=== PATIENT | male | born 1945 ===

== ENCOUNTER 2016-10-30 06:05 | Inpatient (IN) | payer MEDICARE ==
[~2016-10-30] VITALS: Ht 188 cm; Wt 120.9 kg
[2016-10-30] VITALS (11 sets, daily range): BP systolic 161–194; BP diastolic 70–83; PULSE 58–69; RESP 18–36; TEMP 98.8–100.1; O2SAT 96–100
[2016-10-30] MEDS ORDERED: VANCOMYCIN INJ 1,000 MG in SODIUM CHLOR 0.9% 250 ML INJ 250 ML IV STA (06:20)
[2016-10-30] MEDS ORDERED: CEFEPIME INJ 2,000 MG in SODIUM CHLORIDE 0.9% INJ 100 ML IV STA (06:20)
[2016-10-30] MEDS ORDERED: RESP: ALBUTEROL 2.5 MG/IPRATROPIUM 0.5 MG NEB (SCH) NEB ONE (06:30)
[2016-10-30 06:44] LABS: BLOOD GAS BASE EXCESS -5.2 mmol/L (-2-2); BLOOD GAS CARBOXYHEMOGLOBIN 2.5 % (0-4); BLOOD GAS HCO3 18 mmol/L (22-26); BLOOD GAS METHEMOGLOBIN 1.3 % (0-2); BLOOD GAS O2 HGB SATURATION 96 % (90-100); BLOOD GAS OXYGEN CONTENT 14.8 Vol % (12.0-20.0); BLOOD GAS PCO2 28 mmHg (38-42); BLOOD GAS PO2 119 mmHG (61-120); BLOOD GAS TOTAL HGB 10.8 G/DL (12.0-16.0); CRITICAL VALUE NO; DRAW SITE LT RADIAL; FIO2 35 %; NUMBER OF ARTERIAL PUNCTURES 1; OXYGEN DEVICE NPPV; STAT YES; TEMP CORR TO 98.6; ULNAR PULSE PRESENT; VENT SETTINGS IPAP10/EPAP5
[2016-10-30 06:45] LABS: AUTOMATED NEUTROPHIL # 13.8 TH/MM3 (1.8-7.7); BASOPHIL % 0.2 % (0.0-2.0); EOSINOPHIL % 0.1 % (0.0-4.0); HEMATOCRIT 34.7 % (39.0-51.0); LYMPH % 2.1 % (9.0-44.0); LYMPHOCYTE # 0.3 TH/MM3 (1.0-4.8); MEAN CELL VOLUME 88.4 FL (80.0-100.0); MEAN CORPUSCULAR HEMOGLOBIN 28.5 PG (27.0-34.0); MEAN CORPUSCULAR HGB CONC 32.3 % (32.0-36.0); MONO % 9.7 % (0.0-8.0); NEUT % 87.9 % (16.0-70.0); PLATELET COUNT 230 TH/MM3 (150-450); RED BLOOD COUNT 3.93 MIL/MM3 (4.50-5.90); RED CELL DISTRIBUTION WIDTH 15.1 % (11.6-17.2); WHITE BLOOD COUNT 15.7 TH/MM3 (4.0-11.0)
[2016-10-30] MEDS ORDERED: ASPIRIN 81 MG CHEW TAB CHEW ONE (06:45)
[2016-10-30] MEDS ORDERED: NITROGLYCERIN 0.4 MG SL 25 TABS/BTL SL PRN (06:45)
[2016-10-30] MEDS ORDERED: NITROGLYCERIN 2% OINT 1 GM PACKET TOPICAL ONE (06:45)
--- NOTE | 2016-10-30 06:45 | RADRPT ---
EXAM DATE/TIME: 10/30/2016 06:32 [facility] COMPARISON: No previous studies available for comparison. INDICATIONS : Shortness of breath. MEDICAL HISTORY : None. SURGICAL HISTORY : None. ENCOUNTER: Initial ACUITY: 1 day PAIN SCORE: 0/10 LOCATION: Bilateral chest FINDINGS: A single view of the chest demonstrates the lungs to be symmetrically aerated without evidence of mas s, infiltrate or effusion. Heart size is prominent but well compensated. Osseous structures are inta ct. CONCLUSION: 1. Compensated cardiomegaly. 2. Lungs are clear Luigi Estrella MD on October 30, 2016 at 6:43 Board Certified Radiologist. This report was verified electronically.
[2016-10-30 06:51] LABS: APTT (PATIENT) 32.8 SEC (24.3-30.1); INTERNATIONAL NORMALIZED RATIO 1.1 RATIO; PROTHROMBIN TIME - PATIENT 12.3 SEC (9.8-11.6)
[2016-10-30 06:52] LABS: HEMO FLAGS AUTO DIFF
[2016-10-30 06:56] LABS: ANION GAP 10 MEQ/L (5-15); AST (GOT) 37 U/L (15-37); BICARBONATE 19.7 MEQ/L (21.0-32.0); BLOOD UREA NITROGEN 53 MG/DL (7-18); CHLORIDE 107 MEQ/L (98-107); GLOMERULAR FILTRATION RATE 27 ML/MIN (>89); MAGNESIUM 2.1 MG/DL (1.5-2.5); POTASSIUM 5.6 MEQ/L (3.5-5.1); SODIUM (NA) 137 MEQ/L (136-145)
[2016-10-30 07:01] LABS: ALKALINE PHOSPHATASE 233 U/L (45-117); ALT (GPT) 31 U/L (12-78); CREATINE KINASE 110 U/L (39-308); TOTAL BILIRUBIN ADULT 1.2 MG/DL (0.2-1.0)
--- NOTE | 2016-10-30 07:03 | PD ---
HPI Chief Complaint: Respiratory Symptoms Time Seen by Provider: 06:19 Travel History International Travel<30 days: No Contact w/Intl Traveler<30days: No Traveled to known affect area: No History of Present Illness HPI The patient is a 71 year old male who presents to the [facility] emergency department with a history of left lower anterior chest pain and shortness of breath that began approximately one hour prior to arrival. The patient on arrival to this facility has a temperature of 100.1. Unfortunately, the patient is dyspneic and is difficult to obtain a history from. The patient's history is obtained from reviewing the [facility]. According to the [facility] record the patient recently had a crush injury to the left leg and has a splint in place with an open wound to the left medial ankle. Initially, the patient was brought in with reports of abdominal pain, however the patient denies having abdominal pain on my initial evaluation. The patient has a productive sounding cough on examination. He is unsure how long the cough is been going on. The patient has an AV graft in the right upper extremity, however from reviewing the [facility] record I do not see any evidence of him being on dialysis currently. The patient reports that he is unsure whether he is on dialysis. According to their records, the patient has had a renal transplant. Unfortunately, the patient has never been to this facility previously. [facility] Past Medical History Narrative Medical The patient's past medical history is significant for a history of renal failure on hemodialysis in the past, status post kidney transplant, history of atrial fibrillation, chronically anticoagulated from reviewing the record on Eliquis, history of COPD, congestive heart failure, diabetes mellitus, hypertension, anemia, recurrent urinary tract infections, hypocalcemia, history of DVT, hyperlipidemia. From reviewing the [facility] record the patient recently had right upper extremity swelling evaluated with an ultrasound that was negative for DVT. The patient has a history of multiple areas of davila of the upper extremities with skin graft placed previously. Anemia: Yes Atrial Fibrillation: Yes Cardiovascular Problems: Yes Congestive Heart Failure: Yes COPD: Yes Diabetes: Yes Patient Takes Glucophage: No Genitourinary: Yes (UTI) Hypertension: Yes Medical other: Yes (HYPOCALCEMIA, DVT) Integumentary: Yes Renal Failure: Yes (KIDNEY TRANSPLANT) Triglycerides - High: Yes Past Surgical History Narrative Surgical The patient's past surgical history is significant for a right upper extremity AV fistula placement, left leg surgery, skin grafts for davila, history of renal transplant. Other Surgery: Yes (R UA FISTUAL, BURN GRAFTS) Social History Alcohol Use: No Tobacco Use: No Substance Use: No Allergies-Medications (Allergen,Severity, Reaction): Coded Allergies: No Known Allergies (Unverified , 10/30/16) Review of Systems Except as stated in HPI: all other systems reviewed are Neg General / Constitutional: Positive: Fever Eyes: No: Visual changes HENT: No: Headaches Cardiovascular: Positive: Chest Pain or Discomfort Respiratory: Positive: Cough, Shortness of Breath Gastrointestinal: No: Abdominal Pain Genitourinary: No: Dysuria Musculoskeletal: No: Pain Skin: No Rash Neurologic: No: Weakness, Focal Abnormalities, Slurred Speech, Sensory Disturbance Psychiatric: No: Depression Endocrine: No: Polydipsia Hematologic/Lymphatic: No: Easy Bruising Physical Exam Narrative General: The patient is a well-developed well-nourished male, short of breath on arrival with increased work of breathing, tachypnea noted. The patient was brought in by ambulance services, however the patient's blood sugar was not done prior to arrival. The patient's blood sugar on arrival was noted to be in the 168. Head and Neck exam: Head is normocephalic atraumatic. Eyes: EOMI, pupils are equal round and reactive to light. Nose: Midline septum with pink mucous membranes Mouth: Dentition unremarkable. Moist mucus membranes. Posterior oropharynx is not erythematous. No tonsillar hypertrophy. Uvula midline. Airway patent. Neck: No palpable lymphadenopathy. No nuchal rigidity. No thyromegaly. Cardiovascular: Irregularly irregular with rate control in the 60s without murmurs, gallops, or rubs. This is consistent with his history of atrial fibrillation Lungs: Tachypnea as noted on examination with scattered rhonchi throughout. The patient's rhonchi partially improve with coughing. Patient has a productive sounding cough on examination. Abdomen: Soft, without tenderness to palpation in all 4 quadrants of the abdomen. No guarding, rebound, or rigidity. No tenderness on palpation of McBurney's point. Bowel sounds are audible. Negative [place] sign. Extremities: No clubbing or cyanosis. The patient has 1+ pitting edema of the left lower extremity, trace edema of the right lower extremity. The patient has a bandage in place over the right lower extremity below the knee. The patient has a splint in place over the left lower extremity with an open wound at the left medial ankle. This will be cultured. There is a report the record of a previous crush injury to the left leg. Back: No spinous process tenderness to palpation. No costovertebral angle tenderness to palpation. Neurologic Exam: Grossly nonfocal. Data Data Last Documented VS Vital Signs Date Time Temp Pulse Resp B/P Pulse Ox O2 Delivery O2 Flow Rate FiO2 10/30/16 06:32 98 BiPAP 10/30/16 06:32 36 10/30/16 06:15 35 10/30/16 06:07 100.1 69 194/83 Orders Electrocardiogram (10/30/16 06:20) Complete Blood Count With Diff (10/30/16 06:20) Comprehensive Metabolic Panel (10/30/16 06:20) Prothrombin Time / Inr (Pt) (10/30/16 06:20) Act Partial Throm Time (Ptt) (10/30/16 06:20) Lactic Acid Sepsis Protocol (10/30/16 06:20) Magnesium (Mg) (10/30/16 06:20) Lipase (10/30/16 06:20) Ckmb (Isoenzyme) Profile (10/30/16 06:20) Troponin I (10/30/16 06:20) Urinalysis - C+S If Indicated (10/30/16 06:20) Influenzae A/B Antigen (10/30/16 06:20) Blood Culture (10/30/16 06:20) Wound Culture And Gram Stain (10/30/16 06:20) Chest, Single Ap (10/30/16 06:20) Arterial Blood Gas (Abg) (10/30/16 06:20) Blood Glucose (10/30/16 06:20) Ecg Monitoring (10/30/16 06:20) Iv Access Insert/Monitor (10/30/16 06:20) Oximetry (10/30/16 06:20) Oxygen Administration (10/30/16 06:20) Vancomycin Inj (Vancomycin Inj) (10/30/16 06:20) Cefepime Inj (Maxipime Inj) (10/30/16 06:20) B-Type Natriuretic Peptide (10/30/16 06:29) Resp Bipap / Cpap Non Invas Vt (10/30/16 ) Albuterol-Ipratropium Neb (Duoneb Neb) (10/30/16 06:30) Aspirin Chew (Aspirin Chew) (10/30/16 06:45) Nitroglycerin Sl (Nitrostat Sl) (10/30/16 06:45) Nitroglycerin 2% Oint (Nitroglycerin 2% (10/30/16 06:45) CKMB (10/30/16 06:25) CKMB% (10/30/16 06:25) Labs Laboratory Tests Test 10/30/16 10/30/16 06:25 06:34 White Blood Count 15.7 TH/MM3 Red Blood Count 3.93 MIL/MM3 Hemoglobin 11.2 GM/DL Hematocrit 34.7 % Mean Corpuscular Volume 88.4 FL Mean Corpuscular Hemoglobin 28.5 PG Mean Corpuscular Hemoglobin 32.3 % Concent Red Cell Distribution Width 15.1 % Platelet Count 230 TH/MM3 Mean Platelet Volume 8.7 FL Neutrophils (%) (Auto) 87.9 % Lymphocytes (%) (Auto) 2.1 % Monocytes (%) (Auto) 9.7 % Eosinophils (%) (Auto) 0.1 % Basophils (%) (Auto) 0.2 % Neutrophils # (Auto) 13.8 TH/MM3 Lymphocytes # (Auto) 0.3 TH/MM3 Monocytes # (Auto) 1.5 TH/MM3 Eosinophils # (Auto) 0.0 TH/MM3 Basophils # (Auto) 0.0 TH/MM3 CBC Comment AUTO DIFF Differential Comment Prothrombin Time 12.3 SEC Prothromb Time International 1.1 RATIO Ratio Activated Partial 32.8 SEC Thromboplast Time Sodium Level 137 MEQ/L Potassium Level 5.6 MEQ/L Chloride Level 107 MEQ/L Carbon Dioxide Level 19.7 MEQ/L Anion Gap 10 MEQ/L Blood Urea Nitrogen 53 MG/DL Creatinine 2.35 MG/DL Estimat Glomerular Filtration 27 ML/MIN Rate Random Glucose 165 MG/DL Lactic Acid Level 1.0 mmol/L Calcium Level 8.4 MG/DL Magnesium Level 2.1 MG/DL Total Bilirubin 1.2 MG/DL Aspartate Amino Transf 37 U/L (AST/SGOT) Alanine Aminotransferase 31 U/L (ALT/SGPT) Alkaline Phosphatase 233 U/L Total Creatine Kinase 110 U/L Troponin I 0.13 NG/ML Total Protein 5.9 GM/DL Albumin 2.7 GM/DL Lipase 78 U/L Blood Gas Puncture Site LT RADIAL Blood Gas Patient Temperature 98.6 Blood Gas HCO3 18 mmol/L Blood Gas Base Excess -5.2 mmol/L Blood Gas Oxygen Saturation 96 % Arterial Blood pH 7.43 Arterial Blood Partial 28 mmHg Pressure CO2 Arterial Blood Partial 119 mmHG Pressure O2 Arterial Blood Oxygen Content 14.8 Vol % Arterial Blood 2.5 % Carboxyhemoglobin Arterial Blood Methemoglobin 1.3 % Blood Gas Hemoglobin 10.8 G/DL Oxygen Delivery Device NPPV Blood Gas Ventilator Setting IPAP10/EPAP5 Blood Gas Inspired Oxygen 35 % MDM Medical Decision Making Medical Screen Exam Complete: Yes Emergency Medical Condition: Yes Medical Record Reviewed: Yes Differential Diagnosis Pneumonia, versus urinary tract infection, versus sepsis of undetermined origin , versus acute coronary syndrome, versus COPD exacerbation, versus CHF exacerbation, versus metabolic encephalopathy Narrative Course During the course of the patients emergency department visit, the patients history, examination, and differential diagnosis were reviewed with the patient. The patient had IV access obtained and blood work sent for analysis. An EKG was done on arrival. The patient was placed on a resident services manager with oximetry and blood pressure monitoring. The patient's EKG shows atrial fibrillation heart rate of 65, marked right axis deviation, right bundle branch block, no acute ST segment elevation is noted, T waves are downsloping in lead V1, 2. The patient was provided cefepime 2 g IV, vancomycin 1 g IV for suspected sepsis of undetermined origin. The patient was placed on BiPAP on arrival due to his increased work of breathing. The patient's O2 saturation was in the upper 90s. An ABG done on arrival shows a pH of 7.43, PCO2 of 28, PO2 119, bicarbonate 18.3. The patient was given sublingual nitroglycerin every 5 minutes 3 as needed for chest pain. The patient was given nitroglycerin 1 inch to the chest wall. The patient was given aspirin 162 mg by mouth 1. The patients laboratory studies were reviewed and remarkable for white count 15.7, hemoglobin 11.2, platelets 2:30 with neutrophils 87.9, lymphocytes 2.1, monocytes 9.7. CMP is remarkable for potassium of 5.6, CO2 19.7, BUN 53, Creatinine 2.35 this is compared to a prior BUN of 59, creatinine of 2.28 on October 23, 2016. Alkaline phosphatase 233, CPK 110, troponin I 0.13, lipase 78 PT 12.3, PTT 32.8 Radiology studies were reviewed and remarkable for a chest x-ray that shows no acute abnormality, compensated cardiomegaly, lungs are clear. Given the patient 's reports of abdominal pain/left anterior lower chest pain, the patient will have a CT scan of the abdomen and pelvis also done. The patient's case will be checked out to the oncoming emergency physician to disposition based on the conclusion of the patient's workup. The patient will clearly be admitted to the hospital for continued evaluation and treatment. Sepsis Criteria SIRS Criteria (2 or more): RR > 20 or PaCO2 < 32, WBC > 05292, < 4000 or > 10 % bands Sepsis Criteria (SIRS+source): Infect source susp/known Diagnosis Primary Impression: Chest pain, rule out acute myocardial infarction Additional Impressions: Abdominal pain Qualified Code: R10.12 - Left upper quadrant pain Shortness of breath Admitting Information Admitting Physician Requests: Admit Matilde Joyce MD Oct 30, 2016 07:03
[2016-10-30] MEDS ORDERED: HYDR-3583 PO (07:07)
[2016-10-30] MEDS ORDERED: ZOCO40TA PO (07:07)
[2016-10-30] MEDS ORDERED: SILV1CRE80 TOPICAL (07:07)
[2016-10-30] MEDS ORDERED: APIX2.5T PO (07:07)
[2016-10-30] MEDS ORDERED: TACR5 PO (07:07)
[2016-10-30] MEDS ORDERED: ZINC220T PO (07:07)
[2016-10-30] MEDS ORDERED: ASCO500C PO (07:07)
[2016-10-30] MEDS ORDERED: MULT1TAB84 PO (07:07)
[2016-10-30] MEDS ORDERED: MILKSUS PO (07:07)
[2016-10-30] MEDS ORDERED: LANTUS2P SQ (07:07)
[2016-10-30] MEDS ORDERED: HYDR50TA15 PO (07:07)
[2016-10-30] MEDS ORDERED: DULC10SU3 RECTAL (07:07)
[2016-10-30] MEDS ORDERED: LOSA50TA PO (07:07)
[2016-10-30] MEDS ORDERED: CALC0.5C6 PO (07:07)
[2016-10-30] MEDS ORDERED: FLEEENE3 RECTAL (07:07)
[2016-10-30] MEDS ORDERED: PRED5TAB PO (07:07)
[2016-10-30] MEDS ORDERED: CARV12.52 PO (07:07)
[2016-10-30] MEDS ORDERED: NOVOINJ3 SQ (07:08)
[2016-10-30 07:34] LABS: ACANTHOCYTES OCC (NORMAL); OVALOCYTES 1+ (NORMAL)
[2016-10-30 07:35] LABS: SCAN/DIFF AUTO DIFF CONFIRMED
[2016-10-30] MEDS ORDERED: DEXTROSE 50% IN WATER 50 ML VIAL(D50) IV PUSH ONE (08:15)
[2016-10-30] MEDS ORDERED: SODIUM POLYSTYRENE SULFONATE SUSP 15 GM/60 ML CUP PO ONE (08:15)
[2016-10-30] MEDS ORDERED: CALCIUM GLUCONATE 10% 1 GM/10 ML VIAL SLOW IVP ONE (08:15)
--- NOTE | 2016-10-30 08:28 | PD ---
Physical Exam Narrative Receive sign out to follow up CTa/p and reevaluate. Please see previous provider Dr. Joyce's note for further details. 71yo M with PMH of afib on eliquis, CHF, renal transplant 10 year ago presents to the ED with c/o chest pain and sob. Pt was placed on BIPAP and has been feeling more comfortable with decreased in respiratory rate. Labs reviewed, leukocytosis of 15.7. H/H at 11.2/34.7 at baseline. K: 5.6. BUN/creatinine unchanged from prior in 09/2016 at 53/2.35. Glucose 165. Lactic acid 1.0. Troponin 0.13. BNP 1484. CXR showed compensated cardiomegaly. Lungs are clear. ABG showed pH 7.43. CO2 28. HCO3 18. CTa/p was ordered by previous team. CTa/p showed transplant kidney, anasarca, tiny bilateral pleural effusion. Pt reevaluated at bedside and noted to have intermittent bradycardia to the low 40s. Will treat hyperkalemia with calcium gluconate, dextrose and insulin and kayexylate. Pt may be bradycardic from hyperkalemia although it is not so high. BP meds include carvedilol 12.5mg BID, hydralazine 50 BID, losartan 50 daily. External pacer pads placed and pt on continuous cardiac monitoring. HR has been in the 60s now. Discussed with Dr. Hoffman and accepted to ICU. Discussed with family and answered all questions. Data Data Last Documented VS Vital Signs Date Time Temp Pulse Resp B/P Pulse Ox O2 Delivery O2 Flow Rate FiO2 10/30/16 06:32 98 BiPAP 10/30/16 06:32 36 10/30/16 06:15 35 10/30/16 06:07 100.1 69 194/83 Orders Electrocardiogram (10/30/16 06:20) Complete Blood Count With Diff (10/30/16 06:20) Comprehensive Metabolic Panel (10/30/16 06:20) Prothrombin Time / Inr (Pt) (10/30/16 06:20) Act Partial Throm Time (Ptt) (10/30/16 06:20) Lactic Acid Sepsis Protocol (10/30/16 06:20) Magnesium (Mg) (10/30/16 06:20) Lipase (10/30/16 06:20) Ckmb (Isoenzyme) Profile (10/30/16 06:20) Troponin I (10/30/16 06:20) Urinalysis - C+S If Indicated (10/30/16 06:20) Influenzae A/B Antigen (10/30/16 06:20) Blood Culture (10/30/16 06:20) Wound Culture And Gram Stain (10/30/16 06:20) Chest, Single Ap (10/30/16 06:20) Arterial Blood Gas (Abg) (10/30/16 06:20) Blood Glucose (10/30/16 06:20) Ecg Monitoring (10/30/16 06:20) Iv Access Insert/Monitor (10/30/16 06:20) Oximetry (10/30/16 06:20) Oxygen Administration (10/30/16 06:20) Vancomycin Inj (Vancomycin Inj) (10/30/16 06:20) Cefepime Inj (Maxipime Inj) (10/30/16 06:20) B-Type Natriuretic Peptide (10/30/16 06:29) Resp Bipap / Cpap Non Invas Vt (10/30/16 ) Albuterol-Ipratropium Neb (Duoneb Neb) (10/30/16 06:30) Aspirin Chew (Aspirin Chew) (10/30/16 06:45) Nitroglycerin Sl (Nitrostat Sl) (10/30/16 06:45) Nitroglycerin 2% Oint (Nitroglycerin 2% (10/30/16 06:45) CKMB (10/30/16 06:25) CKMB% (10/30/16 06:25) Ct Abd/Pel W/O Iv Contrast (10/30/16 07:16) Consult Vascular Access Team (10/30/16 ) Calcium Gluconate Inj (Calcium Gluconate (10/30/16 08:15) Insulin Human Regular Inj (Novolin R Inj (10/30/16 08:30) Dextrose 50% In [place] (Vial) Inj (D50w (Vi (10/30/16 08:15) Sodium Polysty Sulfate Liq (Kayexalate L (10/30/16 08:15) Vascular Poc Ultrasound (10/30/16 ) Urine Culture (10/30/16 08:30) Methylprednisolone So Succ Inj (Solumedr (10/30/16 09:00) Albuterol-Ipratropium Neb (Duoneb Neb) (10/30/16 09:00) Admit Order (Ed Use Only) (10/30/16 09:00) Labs Laboratory Tests Test 10/30/16 10/30/16 10/30/16 10/30/16 06:25 06:34 06:35 08:30 Prothrombin Time 12.3 SEC Prothromb Time International 1.1 RATIO Ratio Activated Partial 32.8 SEC Thromboplast Time Sodium Level 137 MEQ/L Potassium Level 5.6 MEQ/L Chloride Level 107 MEQ/L Carbon Dioxide Level 19.7 MEQ/L Anion Gap 10 MEQ/L Blood Urea Nitrogen 53 MG/DL Creatinine 2.35 MG/DL Estimat Glomerular Filtration 27 ML/MIN Rate Random Glucose 165 MG/DL Lactic Acid Level 1.0 mmol/L Calcium Level 8.4 MG/DL Magnesium Level 2.1 MG/DL Total Bilirubin 1.2 MG/DL Aspartate Amino Transf 37 U/L (AST/SGOT) Alanine Aminotransferase 31 U/L (ALT/SGPT) Alkaline Phosphatase 233 U/L Total Creatine Kinase 110 U/L Creatine Kinase MB 1.0 NG/ML Troponin I 0.13 NG/ML Total Protein 5.9 GM/DL Albumin 2.7 GM/DL Lipase 78 U/L White Blood Count 15.7 TH/MM3 Red Blood Count 3.93 MIL/MM3 Hemoglobin 11.2 GM/DL Hematocrit 34.7 % Mean Corpuscular Volume 88.4 FL Mean Corpuscular Hemoglobin 28.5 PG Mean Corpuscular Hemoglobin 32.3 % Concent Red Cell Distribution Width 15.1 % Platelet Count 230 TH/MM3 Mean Platelet Volume 8.7 FL Neutrophils (%) (Auto) 87.9 % Lymphocytes (%) (Auto) 2.1 % Monocytes (%) (Auto) 9.7 % Eosinophils (%) (Auto) 0.1 % Basophils (%) (Auto) 0.2 % Neutrophils # (Auto) 13.8 TH/MM3 Lymphocytes # (Auto) 0.3 TH/MM3 Monocytes # (Auto) 1.5 TH/MM3 Eosinophils # (Auto) 0.0 TH/MM3 Basophils # (Auto) 0.0 TH/MM3 CBC Comment AUTO DIFF Differential Comment AUTO DIFF CONFIRMED Ovalocytes 1+ Acanthocytes OCC Blood Gas Puncture Site LT RADIAL Blood Gas Patient Temperature 98.6 Blood Gas HCO3 18 mmol/L Blood Gas Base Excess -5.2 mmol/L Blood Gas Oxygen Saturation 96 % Arterial Blood pH 7.43 Arterial Blood Partial 28 mmHg Pressure CO2 Arterial Blood Partial 119 mmHG Pressure O2 Arterial Blood Oxygen Content 14.8 Vol % Arterial Blood 2.5 % Carboxyhemoglobin Arterial Blood Methemoglobin 1.3 % Blood Gas Hemoglobin 10.8 G/DL Oxygen Delivery Device NPPV Blood Gas Ventilator Setting IPAP10/EPAP5 Blood Gas Inspired Oxygen 35 % B-Type Natriuretic Peptide 1484 PG/ML Urine Color YELLOW Urine Turbidity HAZY Urine pH 5.5 Urine Specific [place] 1.023 Urine Protein 30 mg/dL Urine Glucose (UA) NEG mg/dL Urine Ketones 10 mg/dL Urine Occult Blood NEG Urine Nitrite NEG Urine Bilirubin NEG Urine Urobilinogen 2.0 MG/DL Urine Leukocyte Esterase LARGE Urine RBC 2 /hpf Urine WBC 128 /hpf Urine WBC Clumps RARE Urine Squamous Epithelial <1 /hpf Cells Urine Bacteria OCC /hpf Urine Hyaline Casts 1 /lpf Microscopic Urinalysis Comment CATH-CULTURE IND MDM Supervised Visit with KORIN: No Critical Care Narrative Aggregate critical care time was 50 minutes. Time to perform other separately billable procedures was not included in the critical care time. My time did not include minutes spent treating any other patients simultaneously or on activities that did not directly contribute to the patient's treatment. The services I provided to this patient were to treat and/or prevent clinically significant deterioration that could result in: cardiovascular collapse or . I provided critical care services requiring my management, as noted below: Chart data review, documentation time, medication orders and management, vital sign assessments/reviewing monitor data, ordering and reviewing lab tests, ordering and interpreting/reviewing x-rays and diagnostic studies, care of the patient and discussion of the patient with the admitting physicians. Diagnosis Primary Impression: Chest pain, rule out acute myocardial infarction Admitting Information Admitting Physician Requests: Admit Kae Bashir DO Oct 30, 2016 08:28
[2016-10-30] MEDS ORDERED: INSULIN HUMAN REGULAR 1,000 UNITS/10 ML VIAL IV PUSH ONE (08:30)
[2016-10-30 08:44] LABS: BLOOD, URINE NEG (NEG); GLUCOSE,URINE NEG (NEG); HYALINE CAST, URINE 1 /lpf (RARE); KETONE, URINE 10 mg/dL (NEG); NITRITE,URINE NEG (NEG); PH, URINE 5.5 (5.0-8.5); SQUAMOUS EPITHELIAL CELL URINE <1 /hpf (0-5); URINE COLOR YELLOW (YELLW/STRAW)
[2016-10-30 08:45] LABS: BACTERIA, URINE OCC /hpf; COMMENT (UR) CATH-CULTURE IND; CULTURE IF INDICATED CATH CULTURE IND
[2016-10-30] MEDS ORDERED: methylPREDNISolone SOD SUCC 125 MG/2 ML VIAL IVP ONE (09:00)
[2016-10-30] MEDS: RESP: ALBUTEROL 2.5 MG/IPRATROPIUM 0.5 MG NEB (SCH) INH ×3 (09:20→21:02)
--- NOTE | 2016-10-30 09:37 | EKG ---
Date Performed: 10/30/2016 Time Performed: 06:43:14 PTAGE: 71 years EKG: POSSIBLE ATRIAL FIBRILLATION CONSIDERABLE BASELINE ARTEFACT MARKED RIGHT AXIS DEVIATION RIG HT BUNDLE BRANCH BLOCK POSSIBLE ANTERIOR MYOCARDIAL INFARCTION POSSIBLE INFERIOR MYOCARDIAL INFARCTIO N ABNORMAL ECG NO PREVIOUS TRACING DOCTOR: Jerson Milton Interpretating Date/Time 10/30/2016 09:35:30
[2016-10-30] MEDS ORDERED: LORazepam 2 MG/ML VIAL IV PRN (10:00)
[2016-10-30] MEDS ORDERED: MISCELLANEOUS NURSING INFORMATION XX SCH (10:00)
[2016-10-30] MEDS ORDERED: RESP: ALBUTEROL 2.5 MG/IPRATROPIUM 0.5 MG NEB (PRN) INH (10:00)
[2016-10-30] MEDS ORDERED: MORPHINE SULFATE 4 MG/ML INJ IV PRN (10:00)
[2016-10-30] MEDS ORDERED: ZOLPIDEM TARTRATE 5 MG TAB PO PRN (10:00)
[2016-10-30] MEDS: HEPARIN SODIUM - SQ 10,000 UNITS/ML VIAL SQ SCH (10:00)
[2016-10-30] MEDS ORDERED: ACETAMINOPHEN 325 MG TAB PO PRN (10:00)
[2016-10-30] MEDS ORDERED: SODIUM CHLORIDE 0.9% FLUSH 5 ML FLUSH IV FLUSH PRN (10:00)
[2016-10-30] MEDS ORDERED: CHLORHEXIDINE GLUCONATE 2 % 1 PACK (2 CLOTHS) TOP PRN (10:00)
[2016-10-30] MEDS ORDERED: METOCLOPRAMIDE HCL 10 MG/2 ML VIAL IV PRN (10:00)
[2016-10-30] MEDS ORDERED: ONDANSETRON HCL 4 MG/2 ML VIAL IV PRN (10:00)
--- NOTE | 2016-10-30 11:07 | RADRPT ---
EXAM DATE/TIME: 10/30/2016 10:46 [facility] COMPARISON: No previous studies available for comparison. INDICATIONS : Left upper quadrant pain. ORAL CONTRAST: No oral contrast ingested. RADIATION DOSE: 24.63 CTDIvol (mGy) MEDICAL HISTORY : Cardiovascular disease. Hypertension. Chronic obstructive pulmonary disease. SURGICAL HISTORY : None. ENCOUNTER: Initial ACUITY: 1 day PAIN SCALE: 3/10 LOCATION: Right upper quadrant TECHNIQUE: Volumetric scanning of the abdomen and pelvis was performed. Using automated exposure control and ad justment of the mA and/or kV according to patient size, radiation dose was kept as low as reasonably achievable to obtain optimal diagnostic quality images. FINDINGS: There is artifact from patient's arms being at the side. LOWER LUNGS: Small bilateral pleural effusions. LIVER: Homogeneous density without lesion. There is no dilation of the biliary tree. No calcified gallston es. SPLEEN: Normal size without lesion. PANCREAS: Within normal limits. KIDNEYS: Atrophic [place] kidneys. Transplanted kidney right lower quadrant. There is no mass, stone, or hydro nephrosis. ADRENAL GLANDS: Within normal limits. VASCULAR: There is no aortic aneurysm. BOWEL/MESENTERY: The stomach, small bowel, and colon demonstrate no acute abnormality. There is no free intraperitone al air or fluid. ABDOMINAL WALL: Within normal limits. RETROPERITONEUM: There is no lymphadenopathy. BLADDER: No wall thickening or mass. REPRODUCTIVE: Within normal limits. INGUINAL: There is no lymphadenopathy or hernia. MUSCULOSKELETAL: Diffuse anasarca. CONCLUSION: 1. Limited study. 2. Atrophic [place] kidneys. 3. Transplant kidney right lower quadrant. 4. Diffuse anasarca. 5. Tiny bilateral pleural effusions. Todd Brush MD on October 30, 2016 at 11:02 Board Certified Radiologist. This report was verified electronically.
--- NOTE | 2016-10-30 15:18 | EKG ---
Date Performed: 10/30/2016 Time Performed: 09:40:19 PTAGE: 71 years EKG: ATRIAL FIBRILLATION RIGHT AXIS DEVIATION RIGHT BUNDLE BRANCH BLOCK ABNORMAL ECG PREVIOUS TRACING : 10/30/2016 06.43 No significant change from previous tracing noted. DOCTOR: Jerson Milton Interpretating Date/Time 10/30/2016 15:17:49
[2016-10-30] MEDS ORDERED: MYCO250 PO (16:33)
[2016-10-30] MEDS ORDERED: BISACODYL 10 MG SUPP RECTAL PRN (16:45)
[2016-10-30] MEDS ORDERED: SOD PHOSPHATE/SOD BIPHOSPHATE (ADULT) ENEMA 133ML RECTAL PRN (16:45)
[2016-10-30] MEDS ORDERED: MAGNESIUM HYDROXIDE SUSP 30 ML CUP PO PRN (16:45)
--- NOTE | 2016-10-30 17:01 | HHI.HP ---
HPI Service Critical Care Medicine Primary Care Physician Non-Staff Admission Diagnosis CHF exacerbation Diagnosis: Travel History International Travel<30 Days: No Contact w/Intl Traveler <30 Da: No Traveled to Known Affected Are: No History of Present Illness 71 year old male presents with a history of left lower anterior chest pain and shortness of breath that began approximately one hour prior to arrival. The patient's history is obtained from reviewing the patient's intermediate record due to patient's dyspnea and respiratory distress. The patient recently had a crush injury to the left leg and has a splint in place with an open wound to the left medial ankle. Initially, the patient was brought in with reports of abdominal pain, however the patient denies having abdominal pain on my initial evaluation. The patient has a productive sounding cough on examination. He is unsure how long the cough is been going on. The patient has an AV graft in the right upper extremity. He has had a renal transplant. Review of Systems ROS Unable to obtain patient on [employer] BiPAP Past Family Social History Allergies: Coded Allergies: No Known Allergies (Unverified , 10/30/16) Past Medical History - hemodialysis in the past, - status post kidney transplant, - atrial fibrillation, - chronically anticoagulated on Eliquis, - COPD, - congestive heart failure, - diabetes mellitus, - hypertension, - anemia, - recurrent urinary tract infections, - hypocalcemia, - history of DVT, - hyperlipidemia Reported Medications Reported Meds & Active Scripts Active Reported Cellcept (Mycophenolate Mofetil) 250 Mg Cap 500 Mg PO BID Novolog Flexpen Inj (Insulin Aspart) 300 Unit/3 Ml Pen 0 SQ ACHS SLIDING SCALE Eliquis (Apixaban) 2.5 Mg Tab 2.5 Mg PO BID Hydrocodone-Acetaminophen 10-325 mg Tab 1 Tab PO Q4H PRN Zinc Sulfate 220 Mg Tab 220 Mg PO DAILY Vitamin C (Ascorbic Acid) 500 Mg Cap 500 Mg PO BID Multivitamin Adults (Multiple Vitamins W/ Minerals) 1 Tab 1 Tab PO DAILY Prograf (Tacrolimus) 5 Mg Cap 5 Mg PO BID Zocor (Simvastatin) 40 Mg Tab 40 Mg PO HS Prednisone 5 Mg Tab 5 Mg PO DAILY Losartan (Losartan Potassium) 50 Mg Tab 50 Mg PO DAILY Lantus Inj (Insulin Glargine) 100 Unit/Ml Inj 40 SQ AC BREAKFAST Hydralazine (Hydralazine HCl) 50 Mg Tab 50 Mg PO BID Take with a meal Carvedilol 12.5 Mg Tab 12.5 Mg PO BID Calcitriol 0.5 Mcg Cap 0.5 Mcg PO Silver Sulfadiazine Topical (Silver Sulfadiazine) 1 % Cream 1 Applic TOPICAL BID Fleet Enema Rectal (Sodium Phosphates Rectal) 7-19 Gm/118 Ml Enem 118 Ml RECTAL DAILY PRN Milk of Magnesia Liq (Magnesium Hydroxide) 400 Mg/5 Ml Susp 30 Ml PO DAILY PRN Dulcolax Supp (Bisacodyl) 10 Mg Supp 10 Mg RECTAL DAILY PRN Active Ordered Medications Current Medications Medications (Trade) Dose Ordered Sig/Mayda Route PRN Reason Start Time Stop Time Status Last Admin Dose Admin Nitroglycerin (Nitrostat Sl) 0.4 mg Q5M PRN SL CHEST PAIN 10/30/16 06:45 IV Flush (NS Flush) 2 ml UNSCH PRN IV FLUSH FLUSH AFTER USING IV ACCESS 10/30/16 10:00 IV Flush (NS Flush) 2 ml BID IV FLUSH 10/30/16 21:00 Acetaminophen (Tylenol) 650 mg Q6H PRN PO PAIN 1-10 AND/OR FEVER >101F 10/30/16 10:00 Morphine Sulfate (Morphine Inj) 2 mg Q2H PRN IV PAIN SCALE 6 TO 10 10/30/16 10:00 Famotidine (Pepcid Inj) 10 mg Q12HR IV PUSH 10/30/16 21:00 Lorazepam (Ativan Inj) 2 mg Q4H PRN IV Agitation/Sedation 10/30/16 10:00 Ondansetron HCl (Zofran Inj) 4 mg Q6H PRN IV NAUSEA OR VOMITING 10/30/16 10:00 Metoclopramide HCl (Reglan Inj) 10 mg Q6H PRN IV NAUSEA OR VOMITING 10/30/16 10:00 Docusate Sodium (Colace) 100 mg BID PO 10/30/16 21:00 Zolpidem Tartrate (Ambien) 5 mg HS PRN PO INSOMNIA 10/30/16 10:00 Heparin Sodium (Porcine) (Heparin Inj) 5,000 units Q8H SQ 10/30/16 10:00 Miscellaneous Information 1 Q361D XX 10/30/16 10:00 Chlorhexidine Gluconate (Chlorhexidine 2% Cloth) 3 pack Taper DAILY@04 TOP 10/31/16 04:00 10/27/17 03:59 Chlorhexidine Gluconate (Chlorhexidine 2% Cloth) 3 pack UNSCH PRN TOP HYGIENIC CARE 10/30/16 10:00 Family History Noncontributory Social History Negative 3 Physical Exam Vital Signs Vital Signs Date Time Temp Pulse Resp B/P Pulse Ox O2 Delivery O2 Flow Rate FiO2 10/30/16 12:40 67 22 176/74 96 Nasal Cannula 4 10/30/16 12:05 99 Non-Rebreather 15 10/30/16 09:24 97 35 10/30/16 09:21 64 24 180/70 98 BiPAP 10/30/16 06:32 98 BiPAP 10/30/16 06:32 36 96 BiPAP 10/30/16 06:15 99 35 10/30/16 06:07 100.1 69 34 194/83 96 Physical Exam GENERAL: Well-nourished, well-developed patient. SKIN: Warm and dry. HEAD: Normocephalic. EYES: No scleral icterus. No injection or drainage. NECK: Supple, trachea midline. No JVD or lymphadenopathy. CARDIOVASCULAR: Regular rate and rhythm without murmurs, gallops, or rubs. RESPIRATORY: Breath sounds equal bilaterally. No accessory muscle use. GASTROINTESTINAL: Abdomen soft, non-tender, nondistended. MUSCULOSKELETAL: No cyanosis, or edema. BACK: Nontender without obvious deformity. No CVA tenderness. Laboratory Laboratory Tests Test 10/30/16 10/30/16 10/30/16 10/30/16 06:25 06:34 06:35 08:30 White Blood Count 15.7 Red Blood Count 3.93 Hemoglobin 11.2 Hematocrit 34.7 Mean Corpuscular Volume 88.4 Mean Corpuscular Hemoglobin 28.5 Mean Corpuscular Hemoglobin 32.3 Concent Red Cell Distribution Width 15.1 Platelet Count 230 Mean Platelet Volume 8.7 Neutrophils (%) (Auto) 87.9 Lymphocytes (%) (Auto) 2.1 Monocytes (%) (Auto) 9.7 Eosinophils (%) (Auto) 0.1 Basophils (%) (Auto) 0.2 Neutrophils # (Auto) 13.8 Lymphocytes # (Auto) 0.3 Monocytes # (Auto) 1.5 Eosinophils # (Auto) 0.0 Basophils # (Auto) 0.0 CBC Comment AUTO DIFF Differential Comment AUTO DIFF CONFIRMED Ovalocytes 1+ Acanthocytes OCC Prothrombin Time 12.3 Prothromb Time International 1.1 Ratio Activated Partial 32.8 Thromboplast Time Sodium Level 137 Potassium Level 5.6 Chloride Level 107 Carbon Dioxide Level 19.7 Anion Gap 10 Blood Urea Nitrogen 53 Creatinine 2.35 Estimat Glomerular Filtration 27 Rate Random Glucose 165 Lactic Acid Level 1.0 Calcium Level 8.4 Magnesium Level 2.1 Total Bilirubin 1.2 Aspartate Amino Transf 37 (AST/SGOT) Alanine Aminotransferase 31 (ALT/SGPT) Alkaline Phosphatase 233 Total Creatine Kinase 110 Creatine Kinase MB 1.0 Troponin I 0.13 Total Protein 5.9 Albumin 2.7 Lipase 78 Blood Gas Puncture Site LT RADIAL Blood Gas Patient Temperature 98.6 Blood Gas HCO3 18 Blood Gas Base Excess -5.2 Blood Gas Oxygen Saturation 96 Arterial Blood pH 7.43 Arterial Blood Partial 28 Pressure CO2 Arterial Blood Partial 119 Pressure O2 Arterial Blood Oxygen Content 14.8 Arterial Blood 2.5 Carboxyhemoglobin Arterial Blood Methemoglobin 1.3 Blood Gas Hemoglobin 10.8 Oxygen Delivery Device NPPV Blood Gas Ventilator Setting IPAP10/EPAP5 Blood Gas Inspired Oxygen 35 B-Type Natriuretic Peptide 1484 Urine Color YELLOW Urine Turbidity HAZY Urine pH 5.5 Urine Specific [place] 1.023 Urine Protein 30 Urine Glucose (UA) NEG Urine Ketones 10 Urine Occult Blood NEG Urine Nitrite NEG Urine Bilirubin NEG Urine Urobilinogen 2.0 Urine Leukocyte Esterase LARGE Urine RBC 2 Urine WBC 128 Urine WBC Clumps RARE Urine Squamous Epithelial <1 Cells Urine Bacteria OCC Urine Hyaline Casts 1 Microscopic Urinalysis Comment CATH-CULTURE IND Test 10/30/16 12:50 Troponin I 0.14 Date/Time Procedure Status Source Growth 10/30/16 08:30 Urine Culture Received Urine Catheterized Urine Pending 10/30/16 06:25 Gram Stain - Final Resulted Wound Ankle 10/30/16 06:25 Wound Culture Resulted Wound Ankle Pending 10/30/16 06:25 Aerobic Blood Culture Received Blood Peripheral Pending 10/30/16 06:25 Anaerobic Blood Culture Received Blood Peripheral Pending Result Diagram: 10/30/16 0625 10/30/16 0625 Imaging Last 24 hours Impressions Abdomen/Pelvis CT 10/30/16 0716 Signed Impressions: Service Date/Time: Sunday, October 30, 2016 10:46 - CONCLUSION: 1. Limited study. 2. Atrophic [place] kidneys. 3. Transplant kidney right lower quadrant. 4. Diffuse anasarca. 5. Tiny bilateral pleural effusions. Todd Brush MD Chest X-Ray 10/30/16 0620 Signed Impressions: Service Date/Time: Sunday, October 30, 2016 06:32 - CONCLUSION: 1. Compensated cardiomegaly. 2. Lungs are clear Luigi Estrella MD Assessment and Plan Problem List: (1) Shortness of breath ICD Code: R06.02 Status: Acute (2) Abdominal pain ICD Code: R10.9 Status: Acute (3) Chest pain, rule out acute myocardial infarction ICD Code: R07.9 Status: Acute (4) CHF exacerbation ICD Code: I50.9 Status: Acute Assessment and Plan Respiratory failure - COPD exacerbation - BiPAP as needed - systemic steroids Prednisone - Jaspal when resolving - Hold ATB for now - Duonebs Atrial fibrillation, - rate controlled - continue Coreg - chronically anticoagulated on Eliquis Congestive heart failure, - no exacerbation - CXR clear - continue Coreg/Losartan - avoid diuretics due to renal failure Diabetes mellitus, - resume home meds - ISS Hypertension, - Losartan - Coreg - Hydralazine Anemia, - of chronic kidney disease - monitor trend - epogen if indicated by nephrology Acute on chronic renal failure - Nephrology consult - Home meds for renal transplant - Tacrolimus, CellCept, Prednosine DVT/GI prophylaxis - Eliquis/Pepcid Critical Care: The total critical care time was 35 minutes. Time to perform other separately billable procedures was not included in the critical care time. Problem Qualifiers (1) Abdominal pain: Qualified Code: R10.12 - Left upper quadrant pain (2) CHF exacerbation: Qualified Code: I50.9 - Acute on chronic congestive heart failure, unspecified congestive heart failure type Gorge Martinez MD Oct 30, 2016 17:01
--- NOTE | 2016-10-30 19:09 | MB ---
cc: RUTHIE HULL MD DATE OF CONSULTATION: 10/30/2016 REASON FOR CONSULTATION: Chronic kidney disease, post renal transplant. HISTORY OF PRESENT ILLNESS This is a 71-year-old male with a past medical history of hypertension, ischemic heart disease, diabetes mellitus, chronic kidney disease post renal transplant, ischemic heart disease, congestive heart failure, chronic obstructive pulmonary disease, atrial fibrillation, history of deep vein thrombosis, recent history of trauma. He was transferred here from the nursing facility because of worsening shortness of breath. I was called to see the patient because of elevated BUN and creatinine. The patient has known history of chronic kidney disease and post renal transplant according to the . His creatinine baseline is close to 2. He was recently admitted at [facility] in [place]. He has been following with Dr. Thurston as an outpatient and was discharged about a week ago from there to the nursing facility. The patient was admitted there because of history of trauma, and he has a crush injury to the left leg and a splint was in place and he has an open wound in the left medial ankle. The patient has not been eating according to the since he was admitted in [place], and also in the rehab facility he was not eating well. He has been disoriented most of the time because of a lot of pain medications that he has been getting. He has right arm A-V fistula and he was on dialysis about one to [id number] years after he got living related kidney transplant almost ten years ago. The patient has decreased urine output since he came to the emergency department. [facility]. The patient is not a very good historian. Most of the history was taken from the patient's chart and also from the who is at the bedside. The patient denies any chest pain. He does not have any shortness of breath at present. PAST MEDICAL HISTORY: 1. Ischemic heart disease. 2. Congestive heart failure 3. Atrial fibrillation 4. Chronic obstructive pulmonary disease 5. History of chronic kidney disease. 6. Renal transplant. 7. Diabetes mellitus 8. Chronic anemia. 9. Deep venous thrombosis. 10. Hyperlipidemia. 11. Recurrent urinary tract infection. PAST SURGICAL HISTORY: 1. Right arm A-V fistula. 2. History of renal transplant. Surgery 10 years ago. REVIEW OF SYSTEMS: Limited, since the patient is not fully oriented, but he denies any headache, dizziness, blurring of vision. There is no history of fever. He has decreased appetite, not eating well because of nausea, and decreased appetite. There is no vomiting, no diarrhea. He has mild shortness of breath which has improved. There is no chest pain, no cough, no dysuria, hematuria. He denies any difficulty passing urine but he has passed only a small amount of urine since he came here. SOCIAL HISTORY: The patient is . Currently he is in the nursing facility. There is no history of smoking, alcoholism. FAMILY HISTORY: Noncontributory. ALLERGIES NO KNOWN DRUG ALLERGIES. MEDICATIONS Currently he is on the following medications: 1. Normal saline at 100 per hour. 2. Colace 100 mg b.i.d. 3. Eliquis 2.5 mg b.i.d. 4. Vitamin C 500 mg b.i.d. 5. Coreg 12.5 mg b.i.d. 6. Hydralazine 50 mg b.i.d. 7. CellCept 500 mg b.i.d. 8. Prograf 5 mg b.i.d. 9. Losartan 50 mg once a day. 10. Theragran 1 tablet daily. 11. Zinc sulfate 220 mg daily. 12. Pravachol 80 mg q.h.s. 13. DuoNeb nebulizer. 14. Famotidine 10 mg q. 12-hour. 15. Nitrostat as needed. 16. Morphine as needed. 17. Zofran as needed. PHYSICAL EXAMINATION: On examination the patient is awake, alert. He is not fully oriented. His last blood pressure is 176/74, temperature is 100.1, oxygen saturation on 4 liters, is 96%. HEENT: Pupils equal, round, reactive to light and accommodation. Nonicteric sclera. Conjunctivae pale. NECK: Supple. JVD is not elevated. LUNGS: Bilateral decreased air entry with occasional wheezing. HEART: S1-S2, irregular rhythm. ABDOMEN: Distended, soft, lax. There is no tenderness. Bowel sounds positive. EXTREMITIES: There is a splint in the left leg and dressing in the right. INVESTIGATIONS: WBC count is 15.7, hemoglobin 11.2, platelet count of 230, neutrophils 87.9, sodium 137, potassium 5.6, chloride 107, bicarb 19.7, BUN 53, creatinine 2.35, glucose 165, calcium 8.4, total bilirubin is 1.2, AST, ALT normal, alkaline phosphatase 233. Troponin is 0.14, BNP is 1484, total protein is 5.9, albumin is 2.7, INR is 1.1. Urinalysis showing protein of 30. IMAGING STUDIES The patient had a CT scan of the abdomen and pelvis done without IV contrast and shows atrophic [place] kidney transplant, kidney right lower quadrant, diffuse anasarca, bilateral pleural effusion. Bladder showed no wall thickening. No mass or hydronephrosis in the transplant kidney. Chest x-ray was done which shows cardiomegaly. ASSESSMENT/PLAN 1. Chronic kidney disease 2. History of renal transplant 3. Hyperkalemia and bradycardia. 4. Shortness of breath with history of congestive heart failure 5. Recent history of trauma. 6. Anemia. 7. Leukocytosis. The patient was given calcium gluconate and also Kayexalate. He has renal transplant and on CellCept and Prograf. Will check the Prograf level. I agree with continuing IV fluid but watch for any fluid overload status. I will get the Lr catheter to monitor the intake and output accurately, and follow the urine output, the BUN and creatinine. Avoid any nephrotoxins. Thank you for the consultation. I will follow the patient while he is in the hospital. MD VANESSA Rushing/FEDERICO /5:42 PM /6:53 PM
[2016-10-30] MEDS: SODIUM CHLOR 0.9% 1000 ML INJ 1,000 ML IV SCH (20:00)
[2016-10-30] MEDS: SILVER SULFADIAZINE 1% CR 50 GM JAR TOPICAL SCH (21:00)
[2016-10-30] MEDS: hydrALAZINE HCL 50 MG TAB PO SCH (21:18)
[2016-10-30] MEDS: FAMOTIDINE 20 MG/2 ML VIAL IV PUSH SCH (21:18)
[2016-10-30] MEDS: SODIUM CHLORIDE 0.9% FLUSH 5 ML FLUSH IV FLUSH SCH (21:18)
[2016-10-30] MEDS: ASCORBIC ACID 500 MG TAB PO SCH (21:19)
[2016-10-30] MEDS: PRAVASTATIN SOD 80 MG TAB PO SCH (21:19)
[2016-10-30] MEDS: CARVEDILOL 12.5 MG TAB PO SCH (21:19)
[2016-10-30] MEDS: DOCUSATE SODIUM 100 MG CAP PO SCH (21:19)
[2016-10-30] MEDS: APIXABAN 2.5 MG TABLET PO SCH (21:19)
[2016-10-30] MEDS: TACROLIMUS 5 MG CAP PO SCH (21:59)
[2016-10-30] MEDS: MYCOPHENOLATE MOFETIL 500 MG TAB PO SCH (21:59)
[2016-10-31] VITALS (12 sets, daily range): BP systolic 151–183; BP diastolic 65–77; PULSE 57–66; RESP 18–21; TEMP 98.3–98.8; O2SAT 91–99
[2016-10-31] MEDS: RESP: ALBUTEROL 2.5 MG/IPRATROPIUM 0.5 MG NEB (SCH) INH ×6 (00:10→19:00)
[2016-10-31] MEDS: SODIUM CHLOR 0.9% 1000 ML INJ 1,000 ML IV SCH ×2 (03:00→15:46)
[2016-10-31] MEDS: CHLORHEXIDINE GLUCONATE 2 % 1 PACK (2 CLOTHS) TOP SCH (04:00)
[2016-10-31 04:25] LABS: BLOOD, URINE NEG (NEG); COMMENT (UR) CATH-CULTURE IND; CULTURE IF INDICATED CATH CULTURE IND; GLUCOSE,URINE TRACE mg/dL (NEG); HYALINE CAST, URINE 1 /lpf (RARE); KETONE, URINE 40 mg/dL (NEG); MUCUS URINE FEW /lpf (OCC); NITRITE,URINE NEG (NEG); URINE COLOR YELLOW (YELLW/STRAW)
[2016-10-31] MEDS: HEPARIN SODIUM - SQ 10,000 UNITS/ML VIAL SQ SCH ×3 (05:03→18:21)
[2016-10-31 05:39] LABS: BASOPHIL % 0.1 % (0.0-2.0); HEMO FLAGS DIFF FINAL; LYMPH % 3.3 % (9.0-44.0); LYMPHOCYTE # 0.4 TH/MM3 (1.0-4.8); MEAN CELL VOLUME 89.1 FL (80.0-100.0); MEAN CORPUSCULAR HEMOGLOBIN 29.4 PG (27.0-34.0); MONO % 4.9 % (0.0-8.0); NEUT % 91.7 % (16.0-70.0); PLATELET COUNT 183 TH/MM3 (150-450); RED BLOOD COUNT 3.48 MIL/MM3 (4.50-5.90); RED CELL DISTRIBUTION WIDTH 15.8 % (11.6-17.2); WHITE BLOOD COUNT 10.9 TH/MM3 (4.0-11.0)
[2016-10-31 06:04] LABS: ALKALINE PHOSPHATASE 198 U/L (45-117); ALT (GPT) 32 U/L (12-78); ANION GAP 16 MEQ/L (5-15); AST (GOT) 32 U/L (15-37); BICARBONATE 15.5 MEQ/L (21.0-32.0); BLOOD UREA NITROGEN 62 MG/DL (7-18); CHLORIDE 108 MEQ/L (98-107); GLOMERULAR FILTRATION RATE 29 ML/MIN (>89); MAGNESIUM 2.2 MG/DL (1.5-2.5); POTASSIUM 5.4 MEQ/L (3.5-5.1); SODIUM (NA) 139 MEQ/L (136-145); TOTAL BILIRUBIN ADULT 0.9 MG/DL (0.2-1.0)
[2016-10-31] MEDS ORDERED: DEXTROSE 50% IN WATER 50 ML VIAL(D50) IV PUSH PRN (08:00)
[2016-10-31] MEDS ORDERED: GLUCAGON 1 MG/ML VIAL OTHER PRN (08:00)
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
[2016-10-31] MEDS ORDERED: cloNIDine HCL 0.1 MG TAB PO PRN (08:15)
[2016-10-31] MEDS: hydrALAZINE HCL 50 MG TAB PO SCH ×2 (08:38→23:10)
[2016-10-31] MEDS: SODIUM CHLORIDE 0.9% FLUSH 5 ML FLUSH IV FLUSH SCH ×2 (08:38→23:12)
[2016-10-31] MEDS: DOCUSATE SODIUM 100 MG CAP PO SCH ×2 (08:38→23:10)
[2016-10-31] MEDS: APIXABAN 2.5 MG TABLET PO SCH (08:39)
[2016-10-31] MEDS: CARVEDILOL 12.5 MG TAB PO SCH ×2 (08:39→23:10)
[2016-10-31] MEDS: predniSONE 20 MG TAB PO SCH (08:39)
[2016-10-31] MEDS: ASCORBIC ACID 500 MG TAB PO SCH ×2 (08:39→23:09)
[2016-10-31] MEDS: LOSARTAN 50 MG TAB PO SCH (08:39)
[2016-10-31] MEDS: ZINC SULFATE 220 MG CAP PO SCH (08:39)
[2016-10-31] MEDS: MULTIVITAMINS/MINERALS THERAPEUTIC TAB PO SCH (08:39)
[2016-10-31] MEDS: FAMOTIDINE 20 MG/2 ML VIAL IV PUSH SCH ×2 (09:00→23:09)
[2016-10-31] MEDS ORDERED: hydrALAZINE HCL 20 MG/ML VIAL IV PUSH PRN (09:00)
--- NOTE | 2016-10-31 09:37 | MB ---
cc: WING IVORY LEVINE VINCENT G. DO DATE OF CONSULTATION: 10/31/2016 REASON FOR CONSULTATION Elevation of troponin. HISTORY OF PRESENT ILLNESS Sandrita Ledezma is a pleasant 71-year-old male who presented to [facility] due to shortness of breath. He was originally transferred from a nursing facility as he has had more difficulty breathing. He previously was in [facility] due to having a crush injury of his left leg and a splint was in place with an open wound in his left medial ankle. Recently he has not been eating well at the custodial per his family and has been disoriented because of a lot of pain medication that he has been getting. The patient is not a great historian and most of the information is taken from the chart as well as the patient's daughter who is at the bedside. Currently he denies chest pain or shortness of breath. He did state that he has been having some shortness of breath while at the facility. He is unable to tell me what makes the shortness of breath better or worse but does not feel that laying down makes it worse. PAST MEDICAL HISTORY 1. Ischemic heart disease. 2. Congestive heart failure. 3. Atrial fibrillation. 4. COPD. 5. History of chronic kidney disease. 6. Renal transplant. 7. Diabetes mellitus 8. Chronic anemia. 9. History of DVT in his left leg post crush injury. 10.Hyperlipidemia. PAST SURGICAL HISTORY 1. Right arm AV fistula. 2. History of renal transplant (2006). ALLERGIES No known drug allergies. MEDICATIONS 1. Prednisone 5 mg daily. 2. Losartan 50 mg daily 3. Eliquis 2.5 mg b.i.d. 4. Coreg 12.5 mg b.i.d. 5. Hydralazine 50 mg b.i.d. 6. Zocor 40 mg every night. 7. CellCept 500 mg b.i.d. 8. Prograf 5 mg b.i.d. 9. Insulin sliding scale. 10.Lantus 40 units daily. 11.Hydrocodone/acetaminophen 10/325, one every 4 hours as needed for pain. FAMILY HISTORY Denies premature coronary artery disease or sudden cardiac within the family. SOCIAL HISTORY The patient is . He is currently living in a nursing facility. He denies current tobacco, alcohol or drug abuse. REVIEW OF SYSTEMS A review of systems is limited due to the patient being a poor historian, but positive for mild shortness of breath which has improved. Otherwise denies headache, dizziness, blurry vision. Denies fevers or chills. Denies nausea, vomiting or diarrhea. Denies chest pain. Denies dysuria or hematuria. PHYSICAL EXAMINATION VITAL SIGNS: Temperature 98.7, heart rate 60, blood pressure 183/77, respirations 18, pulse ox 97% on room air. GENERAL: In general the patient appears well, in no acute distress, alert and awake. HEENT: Extraocular muscles intact. Mucous membranes moist. NECK: Supple. No JVD at 45 degrees. No carotid bruits heard bilaterally. Carotid upstroke is brisk in nature. HEART: Irregularly irregular. Positive first and second heart sounds. LUNGS: Decreased breath sounds at the bilateral bases with decreased air entry and occasional wheezing. No rales noted. ABDOMEN: Soft, nontender. EXTREMITIES: Trace edema bilaterally. Left leg is in a splint with dressing covering. NEUROLOGIC: No focal deficits. SKIN: Warm, dry and intact. MUSCULOSKELETAL: Osteopathically no kyphoscoliosis, lordosis or paraspinal tender points. LABORATORY Hemoglobin 10.2, hematocrit 31.0, platelets 183. Potassium 5.4, BUN 62, creatinine 2.25. Troponin flat at 0.14. ELECTROCARDIOGRAM Electrocardiogram: Atrial fibrillation with slow ventricular response, marked right axis deviation, right bundle branch block, age indeterminate inferior KS, T-wave inversions laterally possibly due to ischemia. IMPRESSION 1. NSTEMI, possibly type 1 versus type 2. 2. Chronic kidney disease. 3. History of renal transplant. 4. Hyperkalemia. 5. Shortness of breath. 6. History of recent trauma. 7. Anemia. 8. Leukocytosis. 9. Respiratory failure. 10.Atrial fibrillation, chronically anticoagulated on Eliquis. 11.Accelerated hypertension. 12.Acute on chronic renal failure. RECOMMENDATIONS 1. Mr. Ledezma's troponins are relatively flat and may be secondary to his chronic kidney disease, accelerated hypertension and shortness of breath. 2. I discussed with Mr. Ledezma and his daughter about consideration of an ischemic evaluation but concern with his current transplant kidney and kidney function. They would like to attempt to treat this medically as best they can. 3. Will check a 2-D echo to look at his overall left ventricular function, possible valvulopathies and cardiac structure. 4. Will attempt to control his blood pressure as this may be partially the cause of his elevated troponins. 5. We will continue him on his Eliquis. 6. Further recommendations will be made based on the hospital course. Thank you for allowing me to see Sandrita Ledezma. If there are any questions, please do not hesitate to call. Vito Eaton DO VGP/BT /8:50 AM /9:17 AM
[2016-10-31] MEDS ORDERED: SODIUM POLYSTYRENE SULFONATE SUSP 15 GM/60 ML CUP PO ONE (10:00)
[2016-10-31] MEDS: SILVER SULFADIAZINE 1% CR 50 GM JAR TOPICAL SCH ×2 (10:35→21:00)
[2016-10-31] MEDS: MYCOPHENOLATE MOFETIL 500 MG TAB PO SCH ×2 (10:36→23:10)
[2016-10-31] MEDS: TACROLIMUS 5 MG CAP PO SCH (10:37)
[2016-10-31] MEDS: INSULIN ASPART SUPPLEMENTAL SCALE SQ SCH ×3 (10:46→23:08)
[2016-10-31] MEDS: ACETAMINOPHEN/HYDROcodone 325 MG/10 MG TAB PO PRN (15:52)
--- NOTE | 2016-10-31 16:21 | EC ---
Study Study Date:10/31/2016 STUDY CONCLUSIONS SUMMARY - Left ventricle: The cavity size was mildly dilated. Wall thickness was increased in a pattern of moderate LVH. There was concentric hypertrophy. Systolic function was normal. The estimated ejection fraction was in the range of 55% to 60%. Wall motion was normal; there were no regional wall motion abnormalities. Features are consistent with a pseudonormal left ventricular filling pattern, with concomitant abnormal relaxation and increased filling pressure (grade 2 diastolic dysfunction). - Right ventricle: The cavity size was mildly dilated. If LV function is below 40, please consider prescribing an ACEI or ARB or document rationale for non-use. PROCEDURE DATA STUDY STATUS: Elective. Procedure: Transthoracic echocardiography. Image quality was good. Scanning was performed from the parasternal, apical, and subcostal acoustic windows. Study completion: The patient tolerated the procedure well. Transthoracic echocardiography. M-mode, complete 2D, complete spectral Doppler, and color Doppler. Patient status: Inpatient. CARDIAC ANATOMY LEFT VENTRICLE: The cavity size was mildly dilated. Wall thickness was increased in a pattern of moderate LVH. There was concentric hypertrophy. Systolic function was normal. The estimated ejection fraction was in the range of 55% to 60%. Wall motion was normal; there were no regional wall motion abnormalities. Features are consistent with a pseudonormal left ventricular filling pattern, with concomitant abnormal relaxation and increased filling pressure (grade 2 diastolic dysfunction). AORTIC VALVE: Trileaflet; mildly thickened leaflets. Doppler: There was no stenosis. No significant regurgitation. Peak gradient: 12mm Hg (S). MITRAL VALVE: The valve appears to be grossly normal. Doppler: There was no evidence for stenosis. Trace regurgitation. Mean gradient: 2mm Hg (D). Peak gradient: 6mm Hg (D). LEFT ATRIUM: The atrium was moderately dilated. RIGHT VENTRICLE: The cavity size was mildly dilated. PULMONIC VALVE: Not well visualized. Doppler: There was no evidence for stenosis. No significant regurgitation. TRICUSPID VALVE: The valve appears to be grossly normal. Doppler: There was no evidence for stenosis. Trace regurgitation. PERICARDIUM: There was no pericardial effusion. BASIC MEASUREMENTS ADULT Normal Left ventricle LV internal dimension, ED, chordal level, *62.1 mm 43-52 PLAX LV internal dimension, ES, chordal level, *46.3 mm 23-38 PLAX Fractional shortening, chordal level, PLAX *25 % >29 LV posterior wall thickness, ED 13.5 mm IVS/LVPW ratio, ED 1.09 <1.3 Ventricular septum Septal thickness, ED 14.7 mm Aortic valve Leaflet separation *28 mm 15-26 Left atrium Anterior-posterior dimension 50 mm Right ventricle RV internal dimension, ED, PLAX 30 mm 19-38 BASIC MEASUREMENTS ADULT Normal Aortic valve Leaflet separation *28 mm 15-26 Aorta Root diameter, ED *41 mm 20-37 DOPPLER MEASUREMENTS ADULT Normal Main pulmonary artery Pressure, S 30 mm Hg =30 Aortic valve Peak velocity, S 174 cm/s VTI, S 47.8 cm Peak gradient, S 12 mm Hg Mitral valve Peak E-wave velocity 115 cm/s Peak A-wave velocity 81.4 cm/s Mean velocity, D 62.1 cm/s Mean gradient, D 2 mm Hg Peak gradient, D 6 mm Hg Peak E/A ratio 1.4 Tricuspid valve Regurgitant peak velocity 248 cm/s Peak RV-RA gradient, S 25 mm Hg Maximal regurgitant velocity 248 cm/s Systemic veins Estimated CVP 5 mm Hg Right ventricle RV pressure, S *30 mm Hg <30 LEGEND: Mean values are shown as u=mean value. Asterisk (*) dong values outside specified normal range. Prepared and signed by Vito Eaton [id number]
--- NOTE | 2016-10-31 16:43 | HHI.NPPN ---
Subjective General Problems: Anemia, Hypertension Renal Failure: Chronic, Stage III History of Present Illness 71-year-old male with a past medical history of hypertension, ischemic heart disease, diabetes mellitus, chronic kidney disease post renal transplant, ischemic heart disease, congestive heart failure, chronic obstructive pulmonary disease, atrial fibrillation, history of deep vein thrombosis, recent history of trauma. He was transferred here from the nursing facility because of worsening shortness of breath. I was called to see the patient because of elevated BUN and creatinine. The patient has known history of chronic kidney disease and post renal transplant according to the . His creatinine baseline is close to 2. Additional Remarks Patient is more alert, still not eating , no SOB. Review of Systems General Constitutional: Fatigue Cardiovascular Cardiac: CRISTINA Gastrointestinal Gastrointestinal: Abdominal Pain, Nausea & Vomiting Objective Data Data 10/30/16 10/31/16 19:00 07:00 Intake Total 1093 ml Output Total 550 ml Balance 543 ml Intake Oral 200 ml IV Total 893 ml Output Urine Total 550 ml # Bowel Movements 0 Vital Signs Date Time Temp Pulse Resp B/P Pulse Ox O2 Delivery O2 Flow Rate FiO2 10/31/16 16:00 98.7 64 21 154/65 91 10/31/16 16:00 64 10/31/16 14:00 62 10/31/16 12:00 98.7 66 18 163/69 97 10/31/16 12:00 66 10/31/16 10:00 58 10/31/16 09:28 97 21 10/31/16 08:00 98.3 57 18 182/77 97 10/31/16 08:00 57 10/31/16 06:00 60 10/31/16 04:00 57 10/31/16 04:00 98.7 57 18 183/77 97 10/31/16 02:00 61 10/31/16 00:00 63 10/31/16 00:00 98.8 63 20 151/67 99 10/30/16 22:00 63 10/30/16 21:32 100 21 10/30/16 20:00 99.0 58 18 161/83 98 10/30/16 20:00 58 -: 10/31/16 0426 10/31/16 0426 Microbiology 10/31/16 Urine Culture, Received Pending Physical Exam General Appearance: No Acute Distress, Comfortable Eyes Eye Exam: Pupils Equal Throat Throat Exam: Oral Mucosa Fox & Moist Pulmonary Resp Exam: Breath Sounds Equal, No Distress, Rhonchi, Decreased Bases, Diminished Breath Sounds Cardiology CV Exam: Regular, Normal Sinus Rhythm Gastrointestinal/Abdomen GI Exam: Soft, Non-Tender, Bowel Sounds Present, Distended Extremeties Extremities Exam: Trace Edema Neurologic Neuro Exam: Alert, Awake Psychiatric Psych Exam: Appropriate Responses Assessment/Plan Assessment Summary: Hypertension, CKD Stage III, Transplant Kidney Status Electrolyte Assessment: Hyperkalemia, Metabolic Acidosis Problem List: (1) Shortness of breath (2) Abdominal pain (3) CHF exacerbation (4) Chest pain, rule out acute myocardial infarction (5) History of renal transplant (6) Chronic kidney disease (CKD) Plan Patient has dark and concentrated urine. BP is elevated. Creatinine almost same, close to his baseline. K was elevated and got Kayexalate. Hco3 dropped. Add NaHco3 in IVF. Prograf level was elevated, decrease the dose to 3 mg BID. Follow Prograf level. D/W the at bed side,. Problem Qualifiers (1) Abdominal pain: Qualified Code: R10.12 - Left upper quadrant pain (2) CHF exacerbation: Qualified Code: I50.9 - Acute on chronic congestive heart failure, unspecified congestive heart failure type (3) Chronic kidney disease (CKD): Qualified Code: N18.3 - Chronic kidney disease (CKD), stage 3 (moderate) Andrea Costa MD Oct 31, 2016 16:43
[2016-10-31] MEDS: SODIUM BICARBONATE 8.4% INJ 75 MEQ in SODIUM CHLOR 0.45% 1000 ML INJ 1,000 ML IV SCH (18:20)
--- NOTE | 2016-10-31 18:37 | EKG ---
Date Performed: 10/30/2016 Time Performed: 21:45:15 PTAGE: 71 years EKG: ATRIAL FIBRILLATION WITH SLOW VENTRICULAR RESPONSE MARKED RIGHT AXIS DEVIATION RIGHT BUNDLE BRANCH BLOCK POSSIBLE ANTERIOR MYOCARDIAL INFARCTION , OF INDETERMINATE AGE INFERIOR MYOCARDIAL INFA RCTION , OF INDETERMINATE AGE MODERATE T-WAVE ABNORMALITY, CONSIDER LATERAL ISCHEMIA ABNORMAL ECG PREVIOUS TRACING : 10/30/2016 19.12 DOCTOR: Santiago Rossi Interpretating Date/Time 10/31/2016 18:35:08
--- NOTE | 2016-10-31 18:40 | EKG ---
Date Performed: 10/30/2016 Time Performed: 19:12:30 PTAGE: 71 years EKG: SINUS BRADYCARDIA WITH OCCASIONAL SUPRAVENTRICULAR PREMATURE COMPLEXES MARKED RIGHT AXIS DE VIATION RIGHT BUNDLE BRANCH BLOCK INFERIOR MYOCARDIAL INFARCTION , PROBABLY OLD MODERATE T-WAVE ABNOR MALITY, CONSIDER LATERAL ISCHEMIA ABNORMAL ECG PREVIOUS TRACING : 10/30/2016 12.15 DOCTOR: Santiago Rossi Interpretating Date/Time 10/31/2016 18:37:54
--- NOTE | 2016-10-31 18:50 | EKG ---
Date Performed: 10/30/2016 Time Performed: 12:15:19 PTAGE: 71 years EKG: ATRIAL FIBRILLATION MARKED RIGHT AXIS DEVIATION RIGHT BUNDLE BRANCH BLOCK INFERIOR MYOCARDI AL INFARCTION ABNORMAL ECG PREVIOUS TRACING : 10/30/2016 09.40 DOCTOR: Santiago Rossi Interpretating Date/Time 10/31/2016 18:44:45
[2016-10-31] MEDS: PRAVASTATIN SOD 80 MG TAB PO SCH (23:11)
[2016-11-01] VITALS (9 sets, daily range): BP systolic 148–171; BP diastolic 66–77; PULSE 60–68; RESP 16–21; TEMP 97.2–98.7; O2SAT 97–99
[2016-11-01] MEDS: TACROLIMUS 1 MG CAP PO SCH ×3 (00:19→23:21)
[2016-11-01] MEDS: APIXABAN 2.5 MG TABLET PO SCH ×3 (00:19→23:21)
[2016-11-01] MEDS: SODIUM BICARBONATE 8.4% INJ 75 MEQ in SODIUM CHLOR 0.45% 1000 ML INJ 1,000 ML IV SCH (00:21)
[2016-11-01] MEDS: RESP: ALBUTEROL 2.5 MG/IPRATROPIUM 0.5 MG NEB (SCH) INH ×6 (01:01→20:50)
[2016-11-01] MEDS: HEPARIN SODIUM - SQ 10,000 UNITS/ML VIAL SQ SCH ×3 (02:34→17:45)
[2016-11-01] MEDS: CHLORHEXIDINE GLUCONATE 2 % 1 PACK (2 CLOTHS) TOP SCH (04:00)
[2016-11-01] MEDS: INSULIN ASPART SUPPLEMENTAL SCALE SQ SCH ×3 (08:22→17:30)
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
[2016-11-01 09:03] LABS: BICARBONATE 19.7 MEQ/L (21.0-32.0); POTASSIUM 5.4 MEQ/L (3.5-5.1)
[2016-11-01] MEDS: ASCORBIC ACID 500 MG TAB PO SCH ×2 (10:01→23:20)
[2016-11-01] MEDS: MULTIVITAMINS/MINERALS THERAPEUTIC TAB PO SCH (10:01)
[2016-11-01] MEDS: LOSARTAN 50 MG TAB PO SCH (10:01)
[2016-11-01] MEDS: ZINC SULFATE 220 MG CAP PO SCH (10:01)
[2016-11-01] MEDS: MYCOPHENOLATE MOFETIL 500 MG TAB PO SCH ×2 (10:01→23:20)
[2016-11-01] MEDS: DOCUSATE SODIUM 100 MG CAP PO SCH ×2 (10:01→23:20)
[2016-11-01] MEDS: CARVEDILOL 12.5 MG TAB PO SCH ×2 (10:01→23:21)
[2016-11-01] MEDS: hydrALAZINE HCL 50 MG TAB PO SCH ×2 (10:02→23:21)
[2016-11-01] MEDS: FAMOTIDINE 20 MG/2 ML VIAL IV PUSH SCH ×2 (10:02→23:29)
[2016-11-01] MEDS: ACETAMINOPHEN/HYDROcodone 325 MG/10 MG TAB PO PRN (10:02)
[2016-11-01] MEDS: predniSONE 20 MG TAB PO SCH (10:02)
[2016-11-01] MEDS: SODIUM CHLORIDE 0.9% FLUSH 5 ML FLUSH IV FLUSH SCH ×2 (10:04→23:29)
[2016-11-01] MEDS ORDERED: SODIUM POLYSTYRENE SULFONATE SUSP 15 GM/60 ML CUP PO ONE (12:00)
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
--- NOTE | 2016-11-01 12:55 | PD.CARD.PN ---
Subjective Subjective Remarks No chest pain, no shortness of breath Objective Medications Current Medications Medications (Trade) Dose Ordered Sig/Mayda Route Start Time Stop Time Status Last Admin (Nitrostat Sl) 0.4 mg Q5M PRN SL 10/30/16 06:45 (NS Flush) 2 ml UNSCH PRN IV FLUSH 10/30/16 10:00 (NS Flush) 2 ml BID IV FLUSH 10/30/16 21:00 11/01/16 10:04 (Tylenol) 650 mg Q6H PRN PO 10/30/16 10:00 (Morphine Inj) 2 mg Q2H PRN IV 10/30/16 10:00 (Pepcid Inj) 10 mg Q12HR IV PUSH 10/30/16 21:00 11/01/16 10:02 (Ativan Inj) 2 mg Q4H PRN IV 10/30/16 10:00 (Zofran Inj) 4 mg Q6H PRN IV 10/30/16 10:00 (Reglan Inj) 10 mg Q6H PRN IV 10/30/16 10:00 (Colace) 100 mg BID PO 10/30/16 21:00 11/01/16 10:01 (Ambien) 5 mg HS PRN PO 10/30/16 10:00 (Heparin Inj) 5,000 units Q8H SQ 10/30/16 10:00 11/01/16 10:03 Miscellaneous Information 1 Q361D XX 10/30/16 10:00 (Chlorhexidine 2% Cloth) 3 pack Taper DAILY@04 TOP 10/31/16 04:00 10/27/17 03:59 10/31/16 04:00 (Chlorhexidine 2% Cloth) 3 pack UNSCH PRN TOP 10/30/16 10:00 (Eliquis) 2.5 mg BID PO 10/30/16 21:00 11/01/16 10:14 (Vitamin C) 500 mg BID PO 10/30/16 21:00 11/01/16 10:01 (Dulcolax Supp) 10 mg DAILY PRN RECTAL 10/30/16 16:45 (Coreg) 12.5 mg BID PO 10/30/16 21:00 11/01/16 10:01 (Apresoline) 50 mg BID PO 10/30/16 21:00 11/01/16 10:02 ([place] 10-325 Mg) 1 tab Q4H PRN PO 10/30/16 16:45 11/01/16 10:02 (Cozaar) 50 mg DAILY PO 10/31/16 09:00 11/01/16 10:01 (Milk Of Magnesia Liq) 30 ml DAILY PRN PO 10/30/16 16:45 (Theragran M Tab) 1 tab DAILY PO 10/31/16 09:00 11/01/16 10:01 (Cellcept) 500 mg BID PO 10/30/16 21:00 11/01/16 10:01 (Fleets Enema (Adult)) 118 ml DAILY PRN RECTAL 10/30/16 16:45 (Zinc Sulfate) 220 mg DAILY PO 10/31/16 09:00 11/01/16 10:01 (Pravachol) 80 mg HS PO 10/30/16 21:00 10/31/16 23:11 (Deltasone) 40 mg DAILY PO 10/31/16 09:00 11/01/16 10:02 (D50w (Vial) Inj) 25 ml UNSCH PRN IV PUSH 10/31/16 08:00 (Glucagon Inj) 1 mg UNSCH PRN OTHER 10/31/16 08:00 (Catapres) 0.1 mg Q8H PRN PO 10/31/16 08:15 (Apresoline Inj) 10 mg Q6H PRN IV PUSH 10/31/16 09:00 Tacrolimus 3 mg 3 mg BID PO 10/31/16 21:00 11/01/16 10:14 (Sodium Bicarbonate 8.4% Inj/1/2 NS 1000 ml Inj) 1,075 ml @ 100 mls/hr [id number] IV 10/31/16 18:00 11/01/16 00:21 (Levemir Inj) 10 units HS SQ 11/01/16 21:00 Vital Signs / I&O Vital Signs Date Time Temp Pulse Resp B/P Pulse Ox O2 Delivery O2 Flow Rate FiO2 11/01/16 08:20 97.9 68 18 148/76 97 11/01/16 04:28 97.8 67 21 162/77 98 11/01/16 03:45 97 21 11/01/16 01:03 97 21 11/01/16 00:38 98.7 63 20 171/72 99 10/31/16 20:31 98.4 66 21 161/68 98 10/31/16 19:03 95 21 10/31/16 16:00 98.7 64 21 154/65 91 10/31/16 16:00 64 10/31/16 14:00 62 I/O 10/31/16 10/31/16 10/31/16 11/01/16 11/01/16 11/01/16 07:00 15:00 23:00 07:00 15:00 23:00 Intake Total 688 ml 820 ml 240 ml 240 ml Output Total 250 ml 450 ml 150 ml 300 ml Balance 438 ml 370 ml 90 ml -60 ml Intake Oral 80 ml 100 ml 240 ml 240 ml IV Total 608 ml 720 ml Output Urine Total 250 ml 450 ml 150 ml 300 ml # Bowel Movements 0 2 0 0 Physical Exam GENERAL: NAD, AAOx3 SKIN: Warm and dry. HEAD: Atraumatic. Normocephalic. EYES: Pupils equal and round. No scleral icterus. No injection or drainage. ENT: No nasal bleeding or discharge. Mucous membranes pink and moist. NECK: Trachea midline. No JVD. CARDIOVASCULAR: Regular rate and rhythm. No murmurs noted RESPIRATORY: No accessory muscle use. Clear to auscultation. Breath sounds equal bilaterally. GASTROINTESTINAL: Abdomen soft, non-tender, nondistended. Hepatic and splenic margins not palpable. MUSCULOSKELETAL: Extremities without clubbing, cyanosis, or edema. Left lower extremity with open wounds from before NEUROLOGICAL: Awake and alert. No obvious cranial nerve deficits. Motor grossly within normal limits. Five out of 5 muscle strength in the arms and legs. Normal speech. PSYCHIATRIC: Appropriate mood and affect; insight and judgment normal. Laboratory Laboratory Tests Test 11/01/16 08:21 Sodium Level 140 MEQ/L Potassium Level 5.4 MEQ/L Chloride Level 109 MEQ/L Carbon Dioxide Level 19.7 MEQ/L Anion Gap 11 MEQ/L Blood Urea Nitrogen 74 MG/DL Creatinine 2.58 MG/DL Estimat Glomerular Filtration 25 ML/MIN Rate Random Glucose 374 MG/DL Calcium Level 7.9 MG/DL Assessment and Plan Problem List: (1) History of renal transplant (2) CHF exacerbation (3) Shortness of breath (4) Chronic kidney disease (CKD) (5) Elevated troponin (6) Lower limb ulcer Assessment and Plan 1) NSTEMI, possible type 2, per the patient and daughter's wishes, will continue medical management 2) Blood pressure better controlled 3) No acute CHF, avoid diuretics/renal toxins 4) MARITZA on CKD with renal transplant per nephrology 5) EF 55-60%, stage 2 diastolic dysfunction Problem Qualifiers (1) CHF exacerbation: Qualified Code: I50.9 - Acute on chronic congestive heart failure, unspecified congestive heart failure type (2) Chronic kidney disease (CKD): Qualified Code: N18.3 - Chronic kidney disease (CKD), stage 3 (moderate) (3) Lower limb ulcer: Qualified Code: L97.901 - Lower limb ulcer, unspecified laterality, limited to breakdown of skin Vito Eaton DO Nov 01, 2016 12:55
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
[2016-11-01] MEDS ORDERED: INSULIN DETEMIR 100 UNITS/ML VIAL SQ SCH (21:00)
[2016-11-01] MEDS: PRAVASTATIN SOD 80 MG TAB PO SCH (23:21)
[2016-11-01] MEDS: [UNRECOGNIZED DRUG - OTHER] SQ SCH (23:29)
[2016-11-02 00:26] VITALS: BP 178/76; PULSE 60; RESP 21; TEMP 98.4; O2SAT 96
[2016-11-02] MEDS: RESP: ALBUTEROL 2.5 MG/IPRATROPIUM 0.5 MG NEB (SCH) INH ×5 (01:11→15:33)
[2016-11-02] MEDS: HEPARIN SODIUM - SQ 10,000 UNITS/ML VIAL SQ SCH ×2 (02:34→10:16)
[2016-11-02] MEDS: CHLORHEXIDINE GLUCONATE 2 % 1 PACK (2 CLOTHS) TOP SCH (04:00)
[2016-11-02 04:28] VITALS: BP 180/82
[2016-11-02] MEDS: [UNRECOGNIZED DRUG - OTHER] SQ SCH ×2 (06:40→13:15)
[2016-11-02 08:00] VITALS: BP 175/78; PULSE 57; RESP 17; TEMP 96.1; O2SAT 100
[2016-11-02 08:02] VITALS: O2SAT 98
[2016-11-02] MEDS: DOCUSATE SODIUM 100 MG CAP PO SCH (09:00)
[2016-11-02] MEDS: TACROLIMUS 1 MG CAP PO SCH (10:13)
[2016-11-02] MEDS: MULTIVITAMINS/MINERALS THERAPEUTIC TAB PO SCH (10:14)
[2016-11-02] MEDS: predniSONE 20 MG TAB PO SCH (10:14)
[2016-11-02] MEDS: LOSARTAN 50 MG TAB PO SCH (10:14)
[2016-11-02] MEDS: MYCOPHENOLATE MOFETIL 500 MG TAB PO SCH (10:15)
[2016-11-02] MEDS: ASCORBIC ACID 500 MG TAB PO SCH (10:15)
[2016-11-02] MEDS: CARVEDILOL 12.5 MG TAB PO SCH (10:15)
[2016-11-02] MEDS: ZINC SULFATE 220 MG CAP PO SCH (10:16)
[2016-11-02] MEDS: hydrALAZINE HCL 50 MG TAB PO SCH (10:16)
[2016-11-02] MEDS: APIXABAN 2.5 MG TABLET PO SCH (10:16)
[2016-11-02] MEDS: FAMOTIDINE 20 MG/2 ML VIAL IV PUSH SCH (10:17)
[2016-11-02] MEDS: SODIUM CHLORIDE 0.9% FLUSH 5 ML FLUSH IV FLUSH SCH (10:17)
[2016-11-02 10:25] LABS: BICARBONATE 20.4 MEQ/L (21.0-32.0); POTASSIUM 4.5 MEQ/L (3.5-5.1)
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
[2016-11-02] MEDS ORDERED: HYDR-3583 PO (10:32)
[2016-11-02] MEDS ORDERED: TACR1 PO (10:32)
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
[2016-11-02 12:00] VITALS: BP 153/74; PULSE 65; RESP 16; TEMP 97.5; O2SAT 98
[2016-11-02] MEDS: ACETAMINOPHEN/HYDROcodone 325 MG/10 MG TAB PO PRN ×2 (12:04→16:56)
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
--- NOTE | 2016-11-02 13:52 | PD.CARD.PN ---
Subjective Subjective Remarks No chest pain, no shortness of breath Objective Medications Current Medications Medications (Trade) Dose Ordered Sig/Mayda Route Start Time Stop Time Status Last Admin (Nitrostat Sl) 0.4 mg Q5M PRN SL 10/30/16 06:45 (NS Flush) 2 ml UNSCH PRN IV FLUSH 10/30/16 10:00 (NS Flush) 2 ml BID IV FLUSH 10/30/16 21:00 11/02/16 10:17 (Tylenol) 650 mg Q6H PRN PO 10/30/16 10:00 (Morphine Inj) 2 mg Q2H PRN IV 10/30/16 10:00 (Pepcid Inj) 10 mg Q12HR IV PUSH 10/30/16 21:00 11/02/16 10:17 (Ativan Inj) 2 mg Q4H PRN IV 10/30/16 10:00 (Zofran Inj) 4 mg Q6H PRN IV 10/30/16 10:00 (Reglan Inj) 10 mg Q6H PRN IV 10/30/16 10:00 (Colace) 100 mg BID PO 10/30/16 21:00 11/01/16 23:20 (Ambien) 5 mg HS PRN PO 10/30/16 10:00 (Heparin Inj) 5,000 units Q8H SQ 10/30/16 10:00 11/02/16 10:16 Miscellaneous Information 1 Q361D XX 10/30/16 10:00 (Chlorhexidine 2% Cloth) 3 pack Taper DAILY@04 TOP 10/31/16 04:00 10/27/17 03:59 10/31/16 04:00 (Chlorhexidine 2% Cloth) 3 pack UNSCH PRN TOP 10/30/16 10:00 (Eliquis) 2.5 mg BID PO 10/30/16 21:00 11/02/16 10:16 (Vitamin C) 500 mg BID PO 10/30/16 21:00 11/02/16 10:15 (Dulcolax Supp) 10 mg DAILY PRN RECTAL 10/30/16 16:45 (Coreg) 12.5 mg BID PO 10/30/16 21:00 11/02/16 10:15 (Apresoline) 50 mg BID PO 10/30/16 21:00 11/02/16 10:16 ([place] 10-325 Mg) 1 tab Q4H PRN PO 10/30/16 16:45 11/02/16 12:04 (Cozaar) 50 mg DAILY PO 10/31/16 09:00 11/02/16 10:14 (Milk Of Magnesia Liq) 30 ml DAILY PRN PO 10/30/16 16:45 (Theragran M Tab) 1 tab DAILY PO 10/31/16 09:00 11/02/16 10:14 (Cellcept) 500 mg BID PO 10/30/16 21:00 11/02/16 10:15 (Fleets Enema (Adult)) 118 ml DAILY PRN RECTAL 10/30/16 16:45 (Zinc Sulfate) 220 mg DAILY PO 10/31/16 09:00 11/02/16 10:16 (Pravachol) 80 mg HS PO 10/30/16 21:00 11/01/16 23:21 (Deltasone) 40 mg DAILY PO 10/31/16 09:00 11/02/16 10:14 (Catapres) 0.1 mg Q8H PRN PO 10/31/16 08:15 (Apresoline Inj) 10 mg Q6H PRN IV PUSH 10/31/16 09:00 Tacrolimus 3 mg 3 mg BID PO 10/31/16 21:00 11/02/16 10:13 (Sodium Bicarbonate 8.4% Inj/1/2 NS 1000 ml Inj) 1,075 ml @ 100 mls/hr [id number] IV 10/31/16 18:00 11/01/16 00:21 (Levemir Inj) 10 units HS SQ 11/01/16 21:00 11/01/16 23:28 Vital Signs / I&O Vital Signs Date Time Temp Pulse Resp B/P Pulse Ox O2 Delivery O2 Flow Rate FiO2 11/02/16 12:00 97.5 65 16 153/74 98 11/02/16 08:02 98 21 11/02/16 08:00 96.1 57 17 175/78 100 11/02/16 04:28 180/82 11/02/16 00:26 98.4 60 21 178/76 96 11/01/16 20:52 98 21 11/01/16 19:40 97.3 66 20 99 11/01/16 17:22 97.2 64 18 98 I/O 11/01/16 11/01/16 11/01/16 11/02/16 11/02/16 11/02/16 07:00 15:00 23:00 07:00 15:00 23:00 Intake Total 240 ml 580 ml 240 ml 480 ml Output Total 300 ml 600 ml 1000 ml Balance -60 ml 580 ml -360 ml -520 ml Intake Oral 240 ml 580 ml 240 ml 480 ml Output Urine Total 300 ml 600 ml 1000 ml # Bowel Movements 0 0 0 Physical Exam GENERAL: NAD, AAOx3 SKIN: Warm and dry. HEAD: Atraumatic. Normocephalic. EYES: Pupils equal and round. No scleral icterus. No injection or drainage. ENT: No nasal bleeding or discharge. Mucous membranes pink and moist. NECK: Trachea midline. No JVD. CARDIOVASCULAR: Regular rate and rhythm. No murmurs noted RESPIRATORY: No accessory muscle use. Clear to auscultation. Breath sounds equal bilaterally. GASTROINTESTINAL: Abdomen soft, non-tender, nondistended. Hepatic and splenic margins not palpable. MUSCULOSKELETAL: Extremities without clubbing, cyanosis, or edema. Left lower extremity with open wounds from before NEUROLOGICAL: Awake and alert. No obvious cranial nerve deficits. Motor grossly within normal limits. Five out of 5 muscle strength in the arms and legs. Normal speech. PSYCHIATRIC: Appropriate mood and affect; insight and judgment normal. Laboratory Laboratory Tests Test 11/02/16 09:21 Sodium Level 139 MEQ/L Potassium Level 4.5 MEQ/L Chloride Level 109 MEQ/L Carbon Dioxide Level 20.4 MEQ/L Anion Gap 10 MEQ/L Blood Urea Nitrogen 68 MG/DL Creatinine 2.37 MG/DL Estimat Glomerular Filtration 27 ML/MIN Rate Random Glucose 265 MG/DL Calcium Level 7.8 MG/DL Assessment and Plan Problem List: (1) History of renal transplant (2) CHF exacerbation (3) Shortness of breath (4) Chronic kidney disease (CKD) (5) Elevated troponin (6) Lower limb ulcer Assessment and Plan 1) NSTEMI, possible type 2, per the patient and daughter's wishes, will continue medical management 2) Blood pressure better controlled 3) No acute CHF, avoid diuretics/renal toxins 4) MARITZA on CKD with renal transplant per nephrology 5) EF 55-60%, stage 2 diastolic dysfunction 6) Plan for rehab per primary, will see PRN, call with questions Problem Qualifiers (1) CHF exacerbation: Qualified Code: I50.9 - Acute on chronic congestive heart failure, unspecified congestive heart failure type (2) Chronic kidney disease (CKD): Qualified Code: N18.3 - Chronic kidney disease (CKD), stage 3 (moderate) (3) Lower limb ulcer: Qualified Code: L97.901 - Lower limb ulcer, unspecified laterality, limited to breakdown of skin Vito Eaton DO Nov 02, 2016 13:52
[2016-11-02 15:33] VITALS: O2SAT 99
--- NOTE | 2016-11-06 18:29 | PQ ---
Physician Query Response Document PATIENT: GAVINO PETERSEN : 1945 ADMIT DATE: 10/30/2016 9:04 AM DISCH DATE: 11/02/2016 4:57 PM RESPONDING PROVIDER #: [email or web address] QUERY TEXT: Clinical Validity Additional clinical indicators are required to support your documented diagnosis of NSTEMI. Please respond and also state in your next progress note whether: -- Condition exists and also please provide clinical indicators to support the diagnosis -- Condition does not exist and also please provide amended documentation in the medical record to mary ortega -- Unable to provide additional clarity regarding the diagnosis -- Other, please specify If you have any additional questions/comments and/or concerns, please do not hesitate to reach out to the CDI/Coding Hotline, Ext. [phone]. The patient's Clinical Indicators include: Cardiology consult requested for elevated troponin. Impression of: 1. NSTEMI, possibly type 1 versus type 2. RECOMMENDATIONS : 1. Troponins are relatively flat and may be secondary to his chronic kidney disease, accelerated hyp ertension and shortness of breath. 2. I discussed with ------ and his daughter about consideration of an ischemic evaluation but concern with his current transplant kidney and kidney function. They would like to attempt to treat this med ically as best they can. Cardiology Progress Notes of 11/02/16: Assessment and Plan : 1) NSTEMI, possible type 2, per the patient and daughter's wishes, will continue medical management Discharge Summary does not document NSTEMI. Under Hospital Course: elevated troponin- likely due t o renal failure- cardiology consult appreciated and recommended medical management. Labs show troponin I of 0.13 on admission 10/30/16, tha to 0.14 later that day, then down to 0.12 that evening. Query created by: Padmini Ghosh on 11/06/2016 1:37 PM RESPONSE TEXT: NSTEMI- likely type II Electronically signed by: Sourav Perez MD 11/06/2016 6:25 PM
== END 2016-11-02 16:57 | DRG 280 ==
LOC: NEPE 06:05 → NEDA 09:04 → HIME 14:40 → N06A 10-31 18:32
PROVIDERS: ADMIT Internal Medicine; ATTEND Internal Medicine
PROC: 5A09357 Assistance with Respiratory Ventilation, Less than 24 Consecutive Hours, Continuous Positive Airway Pressure (ICD-10-PCS; principal; 2016-10-30)
DX: I21.4 Non-ST elevation (NSTEMI) myocardial infarction (principal); J96.90 Respiratory failure, unspecified, unspecified whether with hypoxia or hypercapnia; N17.9 Acute kidney failure, unspecified; J44.1 Chronic obstructive pulmonary disease with (acute) exacerbation; I50.32 Chronic diastolic (congestive) heart failure; Z94.0 Kidney transplant status; E11.22 Type 2 diabetes mellitus with diabetic chronic kidney disease; I48.91 Unspecified atrial fibrillation; Z79.02 Long term (current) use of antithrombotics/antiplatelets; I12.9 Hypertensive chronic kidney disease with stage 1 through stage 4 chronic kidney disease, or unspecified chronic kidney disease; N18.3 Chronic kidney disease, stage 3 (moderate); D63.1 Anemia in chronic kidney disease; E87.5 Hyperkalemia; R74.8 Abnormal levels of other serum enzymes; I25.9 Chronic ischemic heart disease, unspecified; R00.1 Bradycardia, unspecified; S87.82XD Crushing injury of left lower leg, subsequent encounter; E78.5 Hyperlipidemia, unspecified; Z79.4 Long term (current) use of insulin; Z79.52 Long term (current) use of systemic steroids; Z79.899 Other long term (current) drug therapy; Z87.440 Personal history of urinary (tract) infections; Z86.718 Personal history of other venous thrombosis and embolism
CPT/HCPCS: 36600; 71010; 74176; 76937; 80048; 80053; 80197; 81001; 82550; 82552; 82805; 82948; 83605; 83690; 83735; 83880; 84100; 84484; 85025; 85610; 85730; 86403; 87040; 87070; 87077; 87086; 87186; 87641; 93005; 93306; 94002; 94640; 94664; 96365; 96366; J0610; J0692; J1644; J1815; J2930; J3370; J7030; J7050; J7507; J7512; J7517